=== PATIENT | female | born 1945 | race Caucasian/White ===

== ENCOUNTER 2019-01-16 11:08 | Day surgery (SDC) | payer MEDICARE ==
[2019-01-10 09:18] VITALS: BMI 30.5
--- NOTE | 2019-01-14 20:06 | HP ---
HISTORY AND PHYSICAL REASON FOR ADMISSION: Surgery 01/16/2019 HISTORY OF PRESENT ILLNESS: Debbie Gerardo is a 74-year-old patient seen with symptomatic right carpal tunnel syndrome. We discussed treatment options. She elected to proceed with decompression right median nerve. Consent was obtained. PAST MEDICAL HISTORY: Hypothyroidism, insulin-dependent diabetes, hyperlipidemia. PAST SURGICAL HISTORY: Noncontributory. MEDICATIONS: Simvastatin, metformin, Lantus insulin, Synthroid. ALLERGIES: ERYTHROMYCIN. VARIOUS EYE DROPS. SOCIAL HISTORY: She denies current tobacco use. PHYSICAL EXAMINATION: Physical evaluation of the right hand, positive carpal compression, positive carpal Tinel's causing numbness and tingling throughout the median nerve distribution. She also has tenderness along the right ring finger with triggering and clicking and catching there. She has a positive carpal compression, carpal Tinel's exacerbating numbness and tingling in the median nerve distribution. She has good perfusion and a good radial pulse is present. An EMG revealed carpal tunnel syndrome. IMPRESSION: 1. Right carpal tunnel syndrome. 2. Right ring finger trigger finger. 3. Insulin-dependent diabetes. 4. Hypothyroidism. PLAN: 1. Decompression right median nerve. 2. Release A1 kerri, right ring finger. 3. Surgery scheduled for 01/16/2019. MMODL / IJN: [id number] /
[~2019-01-16 11:08] MED LIST: HYDROmorphone 0.5 MG/0.5 ML SYRINGE IVP PRN; LACTATED RINGERS 1,000 ML IV SCH; LIDOCAINE 1% 20 ML VIAL (10MG/ML) FOR IV START INTRADERMA PRN; ONDANSETRON 4 MG/2 ML VIAL IVP ONE
[2019-01-16 11:26] VITALS: RESP 16; TEMP 97.2
[2019-01-16 11:37] LABS: Glucose,Whole Blood 117 mg/dL (75-99)
[2019-01-16] MEDS ORDERED: DEXAMETHASONE SOD PHOSPHATE 4 MG/ML 1 ML VIAL IV ONE (11:37)
[2019-01-16] MEDS ORDERED: PROPOFOL 10 MG/ML 20 ML VIAL IV ONE (12:18)
[2019-01-16] MEDS ORDERED: LIDOCAINE 1% INJ 10MG/ML (20 ML MDV) ONE (12:18)
[2019-01-16] MEDS ORDERED: MIDAZOLAM 2 MG/2 ML VIAL ONE (12:18)
[2019-01-16] MEDS ORDERED: fentaNYL (PF) 50 MCG/ML 2 ML AMP ONE (12:18)
[2019-01-16] MEDS ORDERED: BUPIVACAINE (PF) 0.25% 30 ML VIAL SQ ONE (12:34)
[2019-01-16 12:55] VITALS: PULSE 67
--- NOTE | 2019-01-16 13:10 | P.OP ---
Date of Procedure: 01/16/19 Preoperative Diagnosis: 1. Right carpal tunnel syndrome 2 Right ring finger trigger finger Postoperative Diagnosis: Same Procedure(s) Performed: 1. Decompression right median nerve 2. Release A1 kerri right ring finger Anesthesia: MAC, local Surgeon: Soto Flores Estimated Blood Loss (ml): 1 Pathology: none sent Condition: stable Disposition: PACU Indications for Procedure: 74-year-old patient seen with symptomatic right carpal tunnel syndrome as well as a symptomatic right ring finger trigger finger. After I had discussed treatment options with her, she elected to proceed with decompression right median nerve and release A1 kerri right ring finger. Consent was obtained. Operative Findings: see description of procedure Description of Procedure: Patient was taken to the operative suite. The patient underwent IV sedation by the department of anesthesia. The patient received preoperative IV antibiotics. A well-padded tourniquet placed proximal right upper extremity. Right upper extremity was prepped and draped in the normal sterile orthopedic fashion. The proposed incision sites were infiltrated with quarter percent plain Marcaine totaling 15 mL between both areas. The extremity was elevated and tourniquet was insufflated to 250. An incision was now made beginning at the distal volar wrist crease extending distally proximal knee 3 cm in line with the fourth metacarpal sharply through skin. Dissection taken down to the transverse carpal ligament. I now incised transcarpal ligament making sure was completely released proximally and distally. There was complete release of transverse carpal ligament. There was good decompression of the nerve. There was good hemostasis. I now repaired the incision utilizing nylon suture. I now turned my attention to the area A1 kerri right ring finger. An incision was made measuring approximately 2 cm sharply through skin. I dissected down to the A1 kerri. I identified the A1 kerri. I now incised the A1 kerri and released it completely. We noted complete release of A1 kerri. There was good excursion of the tendon with no impingement. There was good hemostasis. I repaired the incision with nylon suture. I applied sterile dressings to both areas. A sterile web roll was applied followed by Coban dressing. The tourniquet was released with immediate capillary fill all digits noted. The patient was awakened, transferred to a bed and recovery stable condition.
[2019-01-16 13:24] LABS: Glucose,Whole Blood 129 mg/dL (75-99)
[2019-01-16 13:29] VITALS: BP 122/68
== END 2019-01-16 13:52 | disposition home or self-care (01) ==
LOC: OR 11:08
PROVIDERS: ATTEND Orthopaedic Surgery
DX: M65.341 Trigger finger, right ring finger (principal); G56.01 Carpal tunnel syndrome, right upper limb; E03.9 Hypothyroidism, unspecified; E11.9 Type 2 diabetes mellitus without complications; E78.5 Hyperlipidemia, unspecified; Z79.890 Hormone replacement therapy; Z79.4 Long term (current) use of insulin; Z79.899 Other long term (current) drug therapy; Z88.1 Allergy status to other antibiotic agents; Z88.8 Allergy status to other drugs, medicaments and biological substances; Z87.891 Personal history of nicotine dependence; K21.9 Gastro-esophageal reflux disease without esophagitis
CPT/HCPCS: 64721; 26055; J2250; J1100; J0690; J2405; J2001; J3010; J2704

== ENCOUNTER → 2019-12-15 | Outpatient (CLI) | payer MEDICARE ==
--- NOTE | 2019-12-17 08:46 | MR ---
EXAMINATION TYPE: MR knee RT wo con DATE OF EXAM: 12/15/2019 COMPARISON: Right knee radiograph 11/18/2019. HISTORY: Right knee pain TECHNIQUE: Multiplanar, multisequence imaging of the right knee is performed without IV contrast. FINDINGS: MEDIAL MENISCUS: There is increased signal and horizontal tear of the posterior horn and body, with e xtension to the tibial articular surface. LATERAL MENISCUS: Anterior and posterior horns are intact without tear. CRUCIATE LIGAMENTS: The anterior and posterior cruciate ligaments are intact. There is mucoid degener ation of the anterior cruciate ligament. COLLATERAL LIGAMENTS: The medial collateral ligament and lateral collateral ligament complex are inta ct and unremarkable. EXTENSOR MECHANISM: Visualized quadriceps and patellar tendons are intact. EFFUSION: No significant suprapatellar joint effusion. POPLITEAL CYST: Small popliteal cyst measuring up to 9 mm. TRICOMPARTMENT SPACES: There is medial compartment joint space narrowing. CARTILAGE: There is thinning of the medial compartment cartilage with complete cartilage loss of the of the anterolateral tibial plateau and mid femoral condyle. Patellofemoral and lateral compartment c artilage maintained. BONE MARROW SIGNAL: There is focal tibial bone marrow edema and femoral subchondral cysts of the late ral aspect of the mid medial femorotibial joint. OTHER: No additional significant abnormality is appreciated. IMPRESSION: 1. Horizontal tear of the medial meniscus posterior horn and body, extending to the tibial articular surface. 2. Medial compartment chondrosis.
== END | disposition home or self-care (01) ==
LOC: RADMRIMAIN 07:09
PROVIDERS: ATTEND Orthopaedic Surgery
DX: S83.241A Other tear of medial meniscus, current injury, right knee, initial encounter (principal); M94.261 Chondromalacia, right knee

== ENCOUNTER → 2019-12-19 | Outpatient (CLI) | payer MEDICARE ==
[2019-12-19 12:38] LABS: Basophils % (A) 1 %; Eosinophils # (A) 0.2 k/uL (0-0.7); Eosinophils % (A) 4 %; HCT 43.7 % (34.0-46.0); HGB 13.7 gm/dL (11.4-16.0); Lymphocytes # (A) 1.6 k/uL (1.0-4.8); Lymphocytes % (A) 24 %; MCH 28.4 pg (25.0-35.0); MCHC 31.3 g/dL (31.0-37.0); MCV 90.9 fL (80.0-100.0); Mean Platelet Volume 8.1; Monocytes # (A) 0.4 k/uL (0-1.0); Monocytes % (A) 6 %; Neutrophils # (A) 4.3 k/uL (1.3-7.7); Neutrophils % (A) 64 %; Platelet Count 205 k/uL (150-450); RBC 4.81 m/uL (3.80-5.40); RDW 13.6 % (11.5-15.5); WBC 6.7 k/uL (3.8-10.6)
[2019-12-19 12:49] LABS: Potassium 4.5 mmol/L (3.5-5.1)
== END | disposition home or self-care (01) ==
LOC: LABPAT 11:12
PROVIDERS: ATTEND Orthopaedic Surgery
DX: Z01.818 Encounter for other preprocedural examination (principal); M23.91 Unspecified internal derangement of right knee
CPT/HCPCS: 36415; 80051; 85025; 93005

== ENCOUNTER 2019-12-31 10:24 | Day surgery (SDC) | payer MEDICARE ==
[2019-12-24 14:40] VITALS: BMI 30.9
--- NOTE | 2019-12-30 12:48 | HP ---
HISTORY AND PHYSICAL DATE OF SURGERY: 12/31/2019 Debbie Gerardo is a 74-year-old patient seen with progressive right knee pain. We discussed options for treatment. She elected to proceed with arthroscopy. Consent was obtained. PAST MEDICAL HISTORY: Hypertension, hyperlipidemia, insulin-dependent diabetes, hypothyroidism. PAST SURGICAL HISTORY: Knee arthroscopy. MEDICATIONS: Aspirin, simvastatin, metformin, Lantus insulin, Synthroid. ALLERGIES: ERYTHROMYCIN EYEDROPS and VARIOUS OTHER EYEDROPS. SOCIAL HISTORY: She denies tobacco use. PHYSICAL EVALUATION OF THE RIGHT: Right knee range of motion is 0-130. There is a mild effusion present. Tenderness medial joint line. Positive medial Jamie's. Ligaments stable. Hip rotation without pain. Distal neurovascular exam intact. RADIOGRAPHS: Radiographs of the right knee revealed osteoarthritic changes. A right knee MRI revealed medial meniscal tear as well as osteoarthritic changes. IMPRESSION: 1. Internal derangement, right knee with medial meniscal tear. 2. Right knee osteoarthritis. 3. Hyperlipidemia. 4. Insulin-dependent diabetes. 5. Hypothyroidism. PLAN: Right knee arthroscopy with partial meniscectomy, partial synovectomy and debridement. MMODL / IJN: [id number] /
[~2019-12-31 10:24] MED LIST changes: +DEXAMETHASONE SOD PHOSPHATE 10 MG/ML 1 ML VIAL IV ONE; -HYDROmorphone 0.5 MG/0.5 ML SYRINGE IVP PRN; -LACTATED RINGERS 1,000 ML IV SCH; -LIDOCAINE 1% 20 ML VIAL (10MG/ML) FOR IV START INTRADERMA PRN; +MIDAZOLAM 2 MG/2 ML VIAL IV PRN
[2019-12-31] MEDS ORDERED: ONDANSETRON 4 MG/2 ML VIAL ONE ×2 (10:41→14:07)
[2019-12-31] MEDS: LACTATED RINGERS 1,000 ML IV SCH ×2 (10:49→14:21)
[2019-12-31] MEDS ORDERED: LIDOCAINE 1% (10MG/ML) FOR IV START INTRADERMA ONE (10:50)
[2019-12-31 10:58] LABS: Glucose,Whole Blood 135 mg/dL (75-99)
[2019-12-31] MEDS ORDERED: fentaNYL (PF) 50 MCG/ML 2 ML AMP ONE (12:05)
[2019-12-31] MEDS ORDERED: LIDOCAINE 1% INJ 10MG/ML (20 ML MDV) ONE (12:05)
[2019-12-31] MEDS ORDERED: PROPOFOL 10 MG/ML 20 ML VIAL IV ONE (12:05)
[2019-12-31] MEDS ORDERED: BUPIVACAINE (PF) 0.25% 30 ML VIAL SQ ONE ×2 (12:13→12:38)
--- NOTE | 2019-12-31 12:52 | P.OP ---
Date of Procedure: 12/31/19 Preoperative Diagnosis: Internal derangement right knee Postoperative Diagnosis: 1. Tear medial meniscus right knee 2. Grade 3/4 chondromalacia medial femoral condyle right knee 3. Reactive synovitis medial, lateral and suprapatellar compartments right knee Procedure(s) Performed: 1. Arthroscopic partial medial meniscectomy right knee 2. Arthroscopic chondroplasty medial femoral condyle right knee 3. Arthroscopic partial synovectomy medial, lateral and suprapatellar compartments right knee Anesthesia: WILLYA, local Surgeon: Soto Flores Estimated Blood Loss (ml): 8 Pathology: none sent Condition: stable Disposition: PACU Indications for Procedure: 74-year-old patient seen with progressive right knee pain. After treatment options were discussed, she elected to proceed with arthroscopy. Operative Findings: See description of procedure Description of Procedure: Patient was taken to the operative suite. Patient underwent a general anesthetic by the department of anesthesia. Patient was given preoperative antibiotics. The right lower extremity was placed in a well-padded arthroscopic leg gonzalez. The right leg was prepped and draped in the normal sterile orthopedic fashion. A lateral parapatellar and suprapatellar incision was made. Trochars were inserted. Arthroscopy was initiated. Suprapatellar pouch revealed diffuse thick reactive synovitis. The patellofemoral joint appeared to articulate congruently. There with grade 3 chondromalacia changes of patellofemoral joint with no osteochondral tears present. The scope was guided into the medial gutter. No loose bodies or plica were identified. The scope was then guided into the medial compartment. A medial parapatellar incision was made. Trocar inserted followed by probe. There was a complex tear posterior horn medial meniscus extending into the midbody. There were grade 3/4 chondromalacia changes of the medial femoral condyle with some diffuse osteochondral flap tears present. There were grade 3/4 chondral malacia changes of the tibial plateau with one small area of exposed bone. There was thick reactive synovitis anteriorly. I performed a partial medial meniscectomy. I performed a chondroplasty of the medial femoral condyle. I performed a partial synovectomy. The residual meniscus was stable. The residual osteochondral surface was stable. There was good decompression of the synovitis. Scope and probe were then guided into the intercondylar notch. Cruciates were identified, probed and found to be stable. The scope and probe were then guided into lateral compartment. The lateral meniscus was found to be stable. There were grade 1 chondromalacia changes of lateral compartment with no osteochondral tears present. There was thick reactive synovitis anteriorly. I introduced a motorized shaver and performed a partial synovectomy decompressing reactive synovitis. The shaver was removed. There was good decompression of the synovitis. The scope was in guided back into the suprapatellar compartment. I introduced a motorized shaver into the suprapatellar compartment. I debrided some piecemeal fragments of meniscus I encountered. I performed a partial synovectomy. The shaver was removed. There was good decompression of the synovitis. I took one more look on the entire knee, no residual debris. Instruments were now removed from the joint. The joint was infiltrated with .25% Marcaine. Steri-Strips were applied to the portal sites. Sterile dressings were applied. The patient was placed into a AUGUSTIN hose. No tourniquet was utilized. The patient was awakened, transferred to a bed and taken to recovery stable satisfactory condition.
[2019-12-31] MEDS: HYDROmorphone 0.5 MG/0.5 ML SYRINGE IVP PRN ×3 (12:56→13:12)
[2019-12-31 13:01] VITALS: TEMP 96.8
[2019-12-31 13:29] LABS: Glucose,Whole Blood 125 mg/dL (75-99)
[2019-12-31] MEDS ORDERED: HYDROcodone/APAP 5-325MG 1 EACH TAB ONE (14:02)
[2019-12-31] MEDS ORDERED: HYDROcodone/APAP 5-325MG 1 EACH TAB PO ONE (14:03)
[2019-12-31] MEDS ORDERED: ONDANSETRON 4 MG/2 ML VIAL IVP ONE (14:10)
[2019-12-31 14:20] VITALS: PULSE 69
[2019-12-31 14:36] VITALS: BP 141/68; RESP 16
[2019-12-31] MEDS ORDERED: diphenhydrAMINE 50 MG/ML 1 ML VIAL ONE (14:39)
[2019-12-31] MEDS ORDERED: diphenhydrAMINE 50 MG/ML 1 ML VIAL IVP ONE (14:43)
== END 2019-12-31 16:10 | disposition home or self-care (01) ==
LOC: OR 10:24
PROVIDERS: ATTEND Orthopaedic Surgery
DX: S83.241A Other tear of medial meniscus, current injury, right knee, initial encounter (principal); X58.XXXA Exposure to other specified factors, initial encounter; M94.261 Chondromalacia, right knee; M17.11 Unilateral primary osteoarthritis, right knee; M65.861 Other synovitis and tenosynovitis, right lower leg; I10 Essential (primary) hypertension; E78.5 Hyperlipidemia, unspecified; E11.9 Type 2 diabetes mellitus without complications; Z87.891 Personal history of nicotine dependence; E03.9 Hypothyroidism, unspecified; Z98.890 Other specified postprocedural states; Z79.82 Long term (current) use of aspirin; Z79.890 Hormone replacement therapy; Z79.4 Long term (current) use of insulin; Z79.891 Long term (current) use of opiate analgesic; Z79.899 Other long term (current) drug therapy; Z88.1 Allergy status to other antibiotic agents; Z88.8 Allergy status to other drugs, medicaments and biological substances
CPT/HCPCS: 29881; 29876; J1200; J1100; J0690; J2405; J2001; J3010; J2704; J1170

== ENCOUNTER → 2020-10-15 | Outpatient (CLI) | payer MEDICARE | END | disposition home or self-care (01) | LOC: LABPAT 13:35 | PROVIDERS: ATTEND Orthopaedic Surgery | DX: Z01.812 Encounter for preprocedural laboratory examination (principal) | CPT/HCPCS: 87070 ==

== ENCOUNTER 2020-11-08 07:52 | Observation (INO) | payer MEDICARE ==
[2020-11-02 13:30] VITALS: BMI 30.9
--- NOTE | 2020-11-07 11:52 | HP ---
HISTORY AND PHYSICAL DATE OF SURGERY: 11/08/2020 Debbie Gerardo is a 75-year-old patient seen with symptomatic right knee osteoarthritis. After treatment options were discussed with her, she elected to proceed with right total knee arthroplasty. Consent was obtained. Medical clearance was provided by Dr. Sheffield. PAST MEDICAL HISTORY: Hyperlipidemia, insulin-dependent diabetes, hypothyroidism. PAST SURGICAL HISTORY: Knee arthroscopy. DAILY MEDICATIONS: Simvastatin, metformin, Lantus insulin, Synthroid. ALLERGIES: ERYTHROMYCIN EYEDROPS, NEOMYCIN EYE DROPS. SOCIAL HISTORY: She denies tobacco use. PHYSICAL EVALUATION OF THE RIGHT KNEE: Range of motion is -2/3-120. Mild effusion. Crepitus medial patellofemoral compartments on range of motion. Pain with patellofemoral compression. Ligaments stable. Hip rotation without pain. Distal neurovascular exam is intact. RADIOGRAPHS: Radiographs of the right knee reveal severe osteoarthritic changes. IMPRESSION: 1. Right knee osteoarthritis. 2. Insulin-dependent diabetes. 3. Hyperlipidemia. 4. Hypothyroidism. PLAN: Right total knee arthroplasty. MMODL / IJN: [id number] /
[~2020-11-08 07:52] MED LIST changes: +ACETAMINOPHEN TAB 500 MG TAB PO PRN; -DEXAMETHASONE SOD PHOSPHATE 10 MG/ML 1 ML VIAL IV ONE; +DEXAMETHASONE SOD PHOSPHATE 4 MG/ML 1 ML VIAL IV ONE; +LACTATED RINGERS 1,000 ML IV SCH; +MELOXICAM 7.5 MG TAB PO PRN; +ROPIVACAINE/EPI/CLONIDINE/KET 50 ML SYRINGE MISCELLANE PRN; +TRANEXAMIC ACID 1,000 MG in SODIUM CHLORIDE 0.9% 100 ML IVPB PRN
[2020-11-08] MEDS ORDERED: LIDOCAINE 1% (10MG/ML) FOR IV START INTRADERMA ONE (08:35)
[2020-11-08 08:41] LABS: Glucose,Whole Blood 102 mg/dL (75-99)
[2020-11-08] MEDS ORDERED: MIDAZOLAM 2 MG/2 ML VIAL IVP ONE (09:06)
[2020-11-08] MEDS ORDERED: TRANEXAMIC ACID 1,000 MG/10 ML VIAL ONE (09:52)
[2020-11-08] MEDS ORDERED: ROPIVACAINE 5 MG/ML 30 ML VIAL ONE (09:52)
[2020-11-08] MEDS ORDERED: MIDAZOLAM 2 MG/2 ML VIAL ONE (09:52)
[2020-11-08] MEDS ORDERED: SODIUM CHLORIDE 0.9% 100 ML BAG ONE (09:52)
[2020-11-08] MEDS ORDERED: ceFAZolin 1,000 MG in SODIUM CHLORIDE 0.9% 1,000 ML IRRIGATION ONE (10:25)
[2020-11-08] MEDS ORDERED: HYDROmorphone 0.2 MG/1 ML SYRINGE IVP PRN (11:34)
[2020-11-08] MEDS ORDERED: NALOXONE 0.4 MG/ML 1 ML VIAL IV PRN (11:34)
[2020-11-08] MEDS ORDERED: ONDANSETRON 4 MG/2 ML VIAL IVP PRN ×2 (11:34→16:14)
[2020-11-08] MEDS ORDERED: HYDROmorphone 0.5 MG/0.5 ML SYRINGE IVP PRN (11:34)
--- NOTE | 2020-11-08 11:34 | P.OP ---
Date of Procedure: 11/08/20 Preoperative Diagnosis: Right knee osteoarthritis Postoperative Diagnosis: Right knee osteoarthritis Procedure(s) Performed: Right total knee arthroplasty Implants: 1. Depuy attune size 6 right cruciate retaining cemented femur 2. Depuy attune size 6 fixed bearing cemented tibial baseplate 3. Depuy attune size 6 fixed bearing cruciate retaining 10 mm polyethylene tibial insert 4. Depuy attune 38 mm all polyethylene cemented patella Anesthesia: regional (Abductor canal catheter, I pack block), spinal Surgeon: Soto Flores Manager [employer]formatics #1: John Cardenas Estimated Blood Loss (ml): 45 Pathology: other (Bone) Condition: stable Disposition: PACU Indications for Procedure: 75-year-old patient seen with symptomatic right knee osteoarthritis. After treatment options were discussed, she elected to proceed with total knee arthroplasty. Operative Findings: see description of procedure Description of Procedure: Patient was taken to the operative suite after having an adductor canal catheter placed by the department of anesthesia along with an ipack block for postoperative pain management. Patient underwent a spinal anesthetic by the department of anesthesia. Patient was given preoperative IV intake antibiotics and TXA. A well-padded tourniquet was placed about the right lower extremity. The lower extremity was then prepped and draped in the normal sterile orthopedic fashion. The extremity was elevated, a tourniquet was insufflated to 300. A standard anterior incision was made sharply through skin. Dissection was taken down through the subcutaneous soft tissues down to the extensor mechanism. A medial arthrotomy was performed, patella was everted and knee was flexed. There was advanced osteoarthritis noted. I introduced my distal intramedullary femoral drill. I then introduced the distal femoral cutting jig. Duane HAZEL secured the cutting jig with 2 pins. I held retractors in position while Duane HAZEL performed the distal femoral resection through the guide area we now removed her distal femoral cutting guide. We now placed our 4-in-1 femoral cutting block and positioned and it was secured with 2 pins by Duane byrd I held the block in position. The distal femoral finishing was now completed. A proximal tibial cutting guide was positioned. I held the guide in the appropriate position with both hands well Duane HAZEL inserted stabilizing pins into the guide. Proximal tibial cut was made. We now placed a trial femoral component into position, along with an appropriate size tibial tray and insert. We now took the knee through range of motion and had full extension good flexion and good overall soft tissue balance noted. The patella was everted and stabilized with 2 towel clips held by Duane HAZEL while I performed a flush with patellar quad tendon utilizing a fresh sawblade. We templated the patella, appropriate drill holes were made. An appropriate trial patella was positioned, knee was taken through full range of motion with the patella tracking very nicely. The trial patella was removed. Drill holes were made through the femoral component. All trial components were removed after marking off the appropriate rotation of the tibia. Retractors were now positioned along the proximal tibia. An appropriate keel punch was made with the appropriate size tibial guide by myself on Duane HAZEL assisted by holding retractors. At this point appropriate size implants were chosen and opened. The joint was irrigated copiously with pulse lavage mechanical irrigation. The posterior capsule was infiltrated with local analgesic. The wound was irrigated with pulse lavage mechanical irrigation. We mixed antibiotic methylmethacrylate. We placed the knee into flexion. We placed multiple retractors assisted by Duane HAZEL to expose the proximal tibia. Once the methyl methacrylate was ready, the tibial component was cemented into place removing any excess methylmethacrylate form by both myself and Duane HAZEL. The femoral component was cemented into place removing the removing any excess methylmethacrylate performed by both myself and Duane HAZEL. We then inserted the appropriate size polyethylene tibial insert. We made sure that it was locked into position. We took the knee into full extension, and then back in a flexion making sure we had removed any excess methylmethacrylate. The patellar component was then cemented down and secured with clamp. Excess methylmethacrylate removed. We kept the knee in full extension, patellar clamp in position until methylmethacrylate had hardened. Once it had hardened the patellar clamp was removed. The knee was taken through full range of motion. The patella tracked nicely. There was good soft tissue balancing. The tourniquet was now released. Additional hemostasis was achieved via electrocautery. A second gram of TXA was given. The wound again was irrigated with pulse lavage mechanical irrigation. The extensor mechanism was repaired with Vicryl. We checked the repair with range of motion and it was stable. The subcutaneous soft tissues were repaired with Vicryl in layers. The skin was ap proximated with pernio/Dermabond. Sterile dressings were applied followed by loose web roll and Parish bandage. The patient was transferred to a bed, and taken to recovery in stable and satisfactory condition. Duane HAZEL assisted with this complex procedure.
[2020-11-08] MEDS ORDERED: ROPIVACAINE 0.2%-NS ON-Q PUMP 2 MG/ML EACH MISCELLANE ONE (12:05)
[2020-11-08 12:09] LABS: Glucose,Whole Blood 73 mg/dL (75-99)
--- NOTE | 2020-11-08 12:13 | XR ---
EXAMINATION TYPE: XR knee limited RT DATE OF EXAM: 11/08/2020 COMPARISON: NONE HISTORY: 75-year-old female evaluation for postoperative abnormality and alignment. TECHNIQUE: 2 views FINDINGS: Images show placement of right total ureter plasty. Both distal femoral and proximal tibial component s of the prosthesis are well seated without periprosthetic fracture. Alignment grossly anatomic. Ante rior soft tissue swelling with soft tissue air as well as intra-articular air relating to recent oper ation. IMPRESSION: Uncomplicated postoperative appearance right total knee arthroplasty.
[2020-11-08] MEDS: HYDROmorphone 0.5 MG/0.5 ML SYRINGE IVP PRN ×2 (12:27→13:40)
[2020-11-08] MEDS: LACTATED RINGERS 1,000 ML IV SCH ×2 (14:00→20:11)
[2020-11-08 14:37] LABS: Glucose,Whole Blood 170 mg/dL (75-99)
--- NOTE | 2020-11-08 16:24 | P.CONS ---
History of Present Illness - Reason for Consult Consult date: 11/08/20 Medical management Requesting physician: Soto Flores - Chief Complaint Knee surgery - History of Present Illness Consultation: This is a pleasant 75-year-old patient of Dr. Gregory. Chronic stable medical conditions include diabetes, hyperlipidemia, osteoarthritis especially in the hands, hypothyroid. Patient has undergone right total knee arthroplasty. Pain control. Has significant nausea. Sitting up in bed. A bit tired. No chest pain or shortness breath. Denies any cardiac history. Daughter the bedside. Review of systems: GEN.: None EYES: None HEENT: None NECK: None RESPIRATORY: None CARDIOVASCULAR: None GASTROINTESTINAL: [Nausea GENITOURINARY: None MUSCULOSKELETAL: Pain in the joints especially the hands LYMPHATICS: None HEMATOLOGICAL: None PSYCHIATRY: None NEUROLOGICAL: None Past medical history to include: Diabetes, hyperlipidemia, osteomyelitis, hypothyroid, Social history: Patient stopped smoking over 20 years ago. Alcohol rarely. . Family history: Reviewed, noncontributory to presentation Physical examination: VITAL SIGNS: 97.9, 72, 18, 1 20 x 33, 94% room air GENERAL: BMI 30.9, sitting on bed, bit tired. EYES: Pupils equal. Conjunctiva normal. HEENT: External appearance of nose and ears normal, oral cavity grossly normal. NECK: JVD not raised; masses not palpable. HEART: First and second heart sounds are normal; no edema. LUNGS: Respiratory rate normal; clear to auscultation. ABDOMEN: Soft, nontender, liver spleen not palpable, no masses palpable. PSYCH: Alert and oriented x3; mood and affect normal MUSCULAR skeletal: Ostomy 30 dose of the hands. Dressing over the right knee. NEUROLOGICAL: Cranial nerves grossly intact; no facial asymmetry, power and sensation grossly intact. LYMPHATICS: No lymph nodes palpable in the axilla and neck Investigations: Accu-Cheks 102, 73, 170 Assessment and plan: -Right total knee arthroplasty -Primary osteoarthritis multiple joints Pain management when necessary -Diabetes mellitus type 2 Resume-glycemic's. Follow Accu-Cheks. Hold off metformin for now. Hold Amaryl -Postop nausea, possibly side effect of anesthesia and pain medication Zofran when necessary -Hypothyroid Resume Synthroid -Insomnia, intermittent use melatonin -Obesity BMI 30.9 Weight loss measures and follow with PCP Care was discussed with the patient and daughter the bedside. Resume Lantus. Hold Amaryl and metformin for now. Follow Shahnazu-Jamie. Camelia. Thank you Dr. Florence Past Medical History Past Medical History: Diabetes Mellitus, Hyperlipidemia, Osteoarthritis (OA), Thyroid Disorder Additional Past Medical History / Comment(s): steroid injection September 2020 History of Any Multi-Drug Resistant Organisms: None Reported Past Surgical History: Joint Replacement, Tubal Ligation Additional Past Surgical History / Comment(s): Big toe left foot joint replacement. Hemorrhoidectomy. Colonoscopy.L knee arthroscopy, Right total knee (11/08/20). Past Anesthesia/Blood Transfusion Reactions: Postoperative Nausea & Vomiting (PONV) Past Psychological History: No Psychological Hx Reported Smoking Status: Former smoker Past Alcohol Use History: Rare Additional Past Alcohol Use History / Comment(s): Quit smoking >20 yrs ago. Past Drug Use History: None Reported - Past Family History Mother Family Medical History: No Reported History Medications and Allergies Home Medications Medication Instructions Recorded Confirmed Type Aspirin 81 mg PO DAILY 05/05/14 11/08/20 History Glimepiride [Amaryl] 4 mg PO BID 05/05/14 11/08/20 History Levothyroxine Sodium [Synthroid] 112 mcg PO QAM 05/05/14 11/08/20 History Simvastatin 40 mg PO DAILY 05/05/14 11/08/20 History metFORMIN HCL 1,000 mg PO BID 05/05/14 11/08/20 History Insulin Glargine [Lantus] 15 unit SQ HS 01/10/19 11/08/20 History Pioglitazone [Actos] 45 mg PO DAILY 01/10/19 11/08/20 History Multivitamins, Thera [Multivitamin 1 tab PO DAILY 12/24/19 11/08/20 History (formulary)] Allergies Allergy/AdvReac Type Severity Reaction Status Date / Time erythromycin base Allergy Swelling Verified 11/08/20 08:24 polymyxin B Allergy Swelling Verified 11/08/20 08:24 trimethoprim Allergy Swelling Verified 11/08/20 08:24 Physical Exam Vitals: Vital Signs Temp Pulse Pulse Pulse Resp BP Pulse Ox 11/08/20 14:30 97.9 F 72 18 120/73 94 L 11/08/20 13:55 72 16 120/66 98 11/08/20 13:40 66 16 128/68 97 11/08/20 13:25 67 16 131/67 98 11/08/20 13:10 65 16 128/66 96 11/08/20 12:55 69 16 138/67 97 11/08/20 12:40 64 16 130/64 96 11/08/20 12:25 64 16 137/58 96 11/08/20 12:09 64 16 127/58 96 11/08/20 11:54 97.3 F L 64 18 126/67 97 11/08/20 09:24 66 17 153/65 97 11/08/20 08:35 97.4 F L 74 18 168/77 97 Intake and Output 11/08/20 11/08/20 11/08/20 06:59 14:59 22:59 Intake Total 1101 Output Total 45 Balance 1056 Intake: IV 1101 Output: Estimated Blood Loss 45 Other: Weight 81.647 kg Results Labs: Abnormal Lab Results - Last 24 Hours (Table) 11/08/20 11/08/20 11/08/20 Range/Units 08:37 12:07 14:35 POC Glucose (mg/dL) 102 H 73 L 170 H (75-99) mg/dL
[2020-11-08 16:38] LABS: Glucose,Whole Blood 255 mg/dL (75-99)
[2020-11-08] MEDS: INSULIN ASPART (NovoLOG) 100 UNIT/ML VIAL SQ SCH ×2 (18:09→21:39)
[2020-11-08] MEDS: ENOXAPARIN 30 MG/0.3 ML SYRINGE SQ SCH (20:09)
[2020-11-08] MEDS: SENNOSIDES-DOCUSATE SODIUM 1 EACH TAB PO SCH (20:09)
[2020-11-08] MEDS ORDERED: metFORMIN 500 MG TAB PO SCH (21:00)
[2020-11-08 21:31] LABS: Glucose,Whole Blood 304 mg/dL (75-99)
[2020-11-08] MEDS: INSULIN DETEMIR (LEVEMIR) 100 UNIT/ML SYR SQ SCH (21:39)
[2020-11-09] MEDS: LEVOTHYROXINE 112 MCG TAB PO SCH (05:00)
[2020-11-09 07:04] LABS: Glucose,Whole Blood 98 mg/dL (75-99)
[2020-11-09] MEDS: INSULIN ASPART (NovoLOG) 100 UNIT/ML VIAL SQ SCH ×4 (07:17→22:15)
[2020-11-09] MEDS: PIOGLITAZONE 45 MG TAB PO SCH (07:29)
[2020-11-09] MEDS: MELOXICAM 7.5 MG TAB PO SCH (07:29)
[2020-11-09] MEDS: ENOXAPARIN 30 MG/0.3 ML SYRINGE SQ SCH ×2 (07:30→20:29)
[2020-11-09] MEDS: ATORVASTATIN 20 MG TAB PO SCH (07:31)
[2020-11-09] MEDS: HYDROcodone/APAP 5-325MG 1 EACH TAB PO PRN ×3 (07:31→22:13)
--- NOTE | 2020-11-09 08:26 | P.ANPRN ---
Procedure Note - Anesthesia - Nerve Block Performed Right Adductor Canal Infusion Time Out Performed: Yes Date of Procedure: 11/08/20 Procedure Start Time: : Procedure Stop Time: :07 Location of Patient: PreOp Indication: Acute Post-Operative Pain, Requested by Surgeon Sedation Type: Sedate with meaningful contact maintained Preparation: Sterile Prep, Sterile Dressing Position: Supine Catheter: Indwelling Needle Types: Pajunk Needle Gauge: 21 Ultrasound used to visualize needle placement: Yes Ultrasound used to observe medication spread: Yes Blood Aspirated: No Pain Paresthesia on Injection Noted: No Resistance on Injection: Normal Image Stored and Saved: Yes Events: Uneventful and Well Tolerated (ropi .5% 20cc)
--- NOTE | 2020-11-09 08:28 | P.ANPRN ---
Procedure Note - Anesthesia - Nerve Block Performed Right [place] Single Time Out Performed: Yes Date of Procedure: 11/08/20 Procedure Start Time: Procedure Stop Time: Location of Patient: PreOp Indication: Acute Post-Operative Pain, Requested by Surgeon Sedation Type: Sedate with meaningful contact maintained Preparation: Sterile Prep Position: Supine Needle Types: Pajunk Needle Gauge: 21 Ultrasound used to visualize needle placement: Yes Ultrasound used to observe medication spread: Yes Blood Aspirated: No Pain Paresthesia on Injection Noted: No Resistance on Injection: Normal Image Stored and Saved: Yes Events: Uneventful and Well Tolerated (ropi .5% 20cc plus dexamethasone 4mg)
--- NOTE | 2020-11-09 09:00 | P.PN ---
Progress Note - Text 11/09/20 650am 75 yr old female s/p r tkr by Dr Flores, pt has on -q pump for post op pain control. pt seen and evaluated , pt has a vas of 0 for the surgical site. pt was complaining of thigh pain secondary to to tourniquet . solution running at 8cc per hr and desg site looked clean,dry and intact.
[2020-11-09 09:11] LABS: Basophils # (A) 0.01 X 10*3/uL (0.00-0.10); Basophils % (A) 0.1 %; Eosinophils # (A) 0.01 X 10*3/uL (0.04-0.35); Eosinophils % (A) 0.1 %; HCT 38.1 % (37.2-46.3); Lymphocytes # (A) 1.28 X 10*3/uL (0.90-5.00); Lymphocytes % (A) 11.3 %; MCH 28.8 pg (27.0-32.0); MCHC 31.5 g/dL (32.0-37.0); MCV 91.6 fL (80.0-97.0); Mean Platelet Volume 11.1 fL (9.5-12.2); Monocytes # (A) 1.16 X 10*3/uL (0.20-1.00); Monocytes % (A) 10.2 %; Neutrophils # (A) 8.83 X 10*3/uL (1.80-7.70); Platelet Count 198 X 10*3/uL (140-440); RBC 4.16 X 10*6/uL (4.10-5.20); RDW 14.6 % (11.5-14.5); WBC 11.32 X 10*3/uL (4.50-10.00)
--- NOTE | 2020-11-09 10:53 | P.PN ---
Subjective Progress Note Date: 11/09/20 Principal diagnosis: Status post right total knee arthroplasty Patient was examined today bedside, she is resting in a hospital chair. She has a bit with therapy, she was having difficulty, dorsiflexion of the right foot. Therapy is recommending 1 additional night's stay for observation. She is noting some anterior thigh pain in the region where the tourniquet was placed. She denies any headaches, lightheadedness, chest pain or shortness of breath. Objective - Vital Signs Vital signs: Vital Signs Temp 98.0 F 11/09/20 08:00 Pulse 74 11/09/20 08:00 Resp 19 11/09/20 08:00 BP 109/68 11/09/20 08:00 Pulse Ox 96 11/09/20 08:00 Intake & Output 11/08/20 11/09/20 11/09/20 18:59 06:59 18:59 Intake Total 1101 480 Output Total 45 Balance 1056 480 Weight 81.647 kg Intake: IV 1101 Intake, IV Titration 480 Amount Lactated Ringers 1,000 ml 480 @ 80 mls/hr IV .[id number] [facility] Rx#:[id number] Output: Estimated Blood Loss 45 Other: # Voids 1 2 - Exam Right lower extremity: Incision is clean, dry, and intact. The foam dressings is in good condition. There is minimal soft tissue swelling and ecchymosis surrounding the medial and lateral aspects of the incision. Calf is soft, no tenderness with palpation. Plantar flexion, FHL are intact. Difficulty with dorsiflexion of the ankle and EHL. Sensory exam to light touch throughout the extremity is intact, dorsal pedis pulses 2+. - Labs CBC & Chem 7: 11/09/20 05:44 Labs: Abnormal Lab Results - Last 24 Hours (Table) 11/08/20 11/08/20 11/08/20 Range/Units 12:07 14:35 16:37 WBC (4.50-10.00) X 10*3/uL MCHC (32.0-37.0) g/dL RDW (11.5-14.5) % Neutrophils # (1.80-7.70) X 10*3/uL Monocytes # (0.20-1.00) X 10*3/uL Eosinophils # (0.04-0.35) X 10*3/uL POC Glucose (mg/dL) 73 L 170 H 255 H (75-99) mg/dL 11/08/20 11/09/20 Range/Units 21:30 05:44 WBC 11.32 H (4.50-10.00) X 10*3/uL MCHC 31.5 L (32.0-37.0) g/dL RDW 14.6 H (11.5-14.5) % Neutrophils # 8.83 H (1.80-7.70) X 10*3/uL Monocytes # 1.16 H (0.20-1.00) X 10*3/uL Eosinophils # 0.01 L (0.04-0.35) X 10*3/uL POC Glucose (mg/dL) 304 H (75-99) mg/dL Assessment and Plan Assessment: Status post right total knee arthroplasty Right-sided foot drop Plan: Pain control, continue use of oral medication as needed DVT prophylaxis, continue with current medications Wound care instructions were discussed Icing and elevating techniques discussed Encourage incentive spirometer Medical recommendations We'll continue to follow symptoms and foot drop on the right side Discharge planning: Patient will be discharged home likely 11/10/2020 Time with Patient: Less than 30
[2020-11-09 11:30] LABS: Glucose,Whole Blood 244 mg/dL (75-99)
[2020-11-09] MEDS: metFORMIN 500 MG TAB PO SCH ×2 (12:01→17:39)
[2020-11-09] MEDS: MULTIVITAMINS, THERA 1 EACH TAB PO SCH (12:01)
[2020-11-09] MEDS: GLIMEPIRIDE 4 MG TAB PO SCH ×2 (12:16→20:29)
[2020-11-09] MEDS: LACTATED RINGERS 1,000 ML IV SCH (12:54)
[2020-11-09] MEDS ORDERED: SENNOSIDES 8.6 MG TAB PO STA (16:24)
--- NOTE | 2020-11-09 16:26 | P.PN ---
Progress Note - Text Progress Note Date: 11/09/20 - Chief Complaint Knee surgery Consultation: This is a pleasant 75-year-old patient of Dr. Gregory. Chronic stable medical conditions include diabetes, hyperlipidemia, osteoarthritis especially in the hands, hypothyroid. Patient has undergone right total knee arthroplasty. Today: Has been up in a chair. Did work with therapy. Some pain present. Did tolerate her breakfast. Postop nausea completely resolved. Review of systems: Was done for constitutional, cardiovascular, GI, pulmonary. relevant finding as above Active Medications Hydrocodone Bitart/Acetaminophen (Hydrocodone/Apap 5-325mg 1 Each Tab) 1 each PO Q6HR PRN PRN Reason: Pain Scale 1 to 5 Stop: 12/08/20 11:35 Last Admin: 11/09/20 07:31 Dose: 1 each Documented by: Hydrocodone Bitart/Acetaminophen (Hydrocodone/Apap 5-325mg 1 Each Tab) 2 each PO Q6HR PRN PRN Reason: Pain Scale 6 to 10 Stop: 12/08/20 11:35 Last Admin: 11/09/20 12:15 Dose: 2 each Documented by: Atorvastatin Calcium (Atorvastatin 20 Mg Tab) 20 mg PO DAILY [facility] Last Admin: 11/09/20 07:31 Dose: 20 mg Documented by: Enoxaparin Sodium (Enoxaparin 30 Mg/0.3 Ml Syringe) 30 mg SQ Q12HR [facility] Stop: 12/08/20 21:01 Last Admin: 11/09/20 07:30 Dose: 30 mg Documented by: Glimepiride (Glimepiride 4 Mg Tab) 4 mg PO BID [facility] Last Admin: 11/09/20 12:16 Dose: 4 mg Documented by: Hydromorphone HCl (Hydromorphone 0.5 Mg/0.5 Ml Syringe) 0.125 mg IVP Q3HR PRN PRN Reason: Pain Scale 1 to 3 Stop: 12/08/20 11:35 Hydromorphone HCl (Hydromorphone 0.5 Mg/0.5 Ml Syringe) 0.5 mg IVP Q3HR PRN PRN Reason: Pain Scale 7 to 10 Stop: 12/08/20 11:35 Hydromorphone HCl (Hydromorphone 0.2 Mg/1 Ml Syringe) 0.2 mg IVP Q3HR PRN PRN Reason: Pain Scale 4 to 6 Stop: 12/08/20 11:35 Lactated Ringer's (Lactated Ringers) 1,000 mls @ 80 mls/hr IV .[id number] [facility] Stop: 12/08/20 11:46 Last Admin: 11/09/20 12:54 Dose: Not Given Documented by: Insulin Aspart (Insulin Aspart (Novolog) 100 Unit/Ml Vial) 0 unit SQ [facility]; Protocol Last Admin: 11/09/20 12:01 Dose: 3 unit Documented by: Insulin Detemir (Insulin Detemir (Levemir) 100 Unit/Ml Syr) 15 unit SQ [facility] Last Admin: 11/08/20 21:39 Dose: 15 unit Documented by: Levothyroxine Sodium (Levothyroxine 112 Mcg Tab) 112 mcg PO QAM@0630 [facility] Last Admin: 11/09/20 05:00 Dose: 112 mcg Documented by: Meloxicam (Meloxicam 7.5 Mg Tab) 7.5 mg PO DAILY [facility] Stop: 12/09/20 09:01 Last Admin: 11/09/20 07:29 Dose: 7.5 mg Documented by: Metformin HCl (Metformin 500 Mg Tab) 500 mg PO BID-W/MEALS [facility] Last Admin: 11/09/20 12:01 Dose: 500 mg Documented by: Multivitamins (Multivitamins, Thera 1 Each Tab) 1 each PO DAILY@1200 [facility] Last Admin: 11/09/20 12:01 Dose: 1 each Documented by: Naloxone HCl (Naloxone 0.4 Mg/Ml 1 Ml Vial) 0.2 mg IV Q2M PRN PRN Reason: Opioid Reversal Stop: 12/08/20 11:35 Ondansetron HCl (Ondansetron 4 Mg/2 Ml Vial) 4 mg IVP Q6HR PRN PRN Reason: Nausea And Vomiting Stop: 12/08/20 11:35 Pioglitazone HCl (Pioglitazone 45 Mg Tab) 45 mg PO DAILY [facility] Last Admin: 11/09/20 07:29 Dose: 45 mg Documented by: Senna/Docusate Sodium (Sennosides-Docusate Sodium 1 Each Tab) 2 each PO HS [facility] Stop: 12/08/20 21:01 Last Admin: 11/08/20 20:09 Dose: 2 each Documented by: Past medical history to include: Diabetes, hyperlipidemia, osteomyelitis, hypothyroid, Social history: Patient stopped smoking over 20 years ago. Alcohol rarely. . Family history: Reviewed, noncontributory to presentation Physical examination: VITAL SIGNS: 97.9, 82, 18, 1 20 x 62, 95% room air GENERAL: Reclining in bed, comfortable EYES: Pupils equal. Conjunctiva normal. NECK: JVD not raised; masses not palpable. HEART: First and second heart sounds are normal; no edema. LUNGS: Respiratory rate normal; clear to auscultation. ABDOMEN: Soft, nontender, liver spleen not palpable, no masses palpable. PSYCH: Alert and oriented x3; mood and affect normal MUSCULAR skeletal: Ostomy 30 dose of the hands. Dressing over the right knee. Investigations: WBC 11.2 hemoglobin 12. Accu-Cheks 98, 244 Accu-Cheks 102, 73, 170 Assessment and plan: -Right total knee arthroplasty Lovenox for DVT prophylaxis -Primary osteoarthritis multiple joints Pain management when necessary -Diabetes mellitus type 2, uncontrolled with hyperglycemia [oral hypoglycemics were held because of nausea yesterday evening.] Continue Lantus Follow Accu-Cheks. Resume metformin and Amaryl -Postop nausea, possibly side effect of anesthesia and pain medication-corrected Zofran when necessary -Hypothyroid Resume Synthroid -Insomnia, intermittent use melatonin -Obesity BMI 30.9 Weight loss measures and follow with PCP Oral hypoglycemics and resume this afternoon. Other medications to continue. Discussed with the patient. Thank you Dr. Florence
[2020-11-09 16:32] LABS: Glucose,Whole Blood 319 mg/dL (75-99)
[2020-11-09] MEDS: HYDROmorphone 0.5 MG/0.5 ML SYRINGE IVP PRN ×2 (16:35→20:29)
[2020-11-09] MEDS ORDERED: INSULIN ASPART (NovoLOG) 100 UNIT/ML VIAL SQ ONE (17:02)
[2020-11-09 20:24] LABS: Glucose,Whole Blood 231 mg/dL (75-99)
[2020-11-09] MEDS: SENNOSIDES-DOCUSATE SODIUM 1 EACH TAB PO SCH (20:28)
[2020-11-09] MEDS: INSULIN DETEMIR (LEVEMIR) 100 UNIT/ML SYR SQ SCH (22:14)
[2020-11-10] MEDS: LACTATED RINGERS 1,000 ML IV SCH (02:16)
[2020-11-10] MEDS: LEVOTHYROXINE 112 MCG TAB PO SCH (06:35)
[2020-11-10] MEDS: HYDROcodone/APAP 5-325MG 1 EACH TAB PO PRN (06:35)
[2020-11-10 06:44] LABS: Glucose,Whole Blood 126 mg/dL (75-99)
[2020-11-10] MEDS: INSULIN ASPART (NovoLOG) 100 UNIT/ML VIAL SQ SCH ×2 (07:56→12:32)
[2020-11-10 07:58] VITALS: BP 150/67; PULSE 81; RESP 18; TEMP 98.3
[2020-11-10] MEDS: MELOXICAM 7.5 MG TAB PO SCH (08:07)
[2020-11-10] MEDS: ATORVASTATIN 20 MG TAB PO SCH (08:07)
[2020-11-10] MEDS: ENOXAPARIN 30 MG/0.3 ML SYRINGE SQ SCH (08:11)
[2020-11-10] MEDS: PIOGLITAZONE 45 MG TAB PO SCH (08:11)
[2020-11-10] MEDS: metFORMIN 500 MG TAB PO SCH (08:11)
[2020-11-10] MEDS: MULTIVITAMINS, THERA 1 EACH TAB PO SCH (08:11)
[2020-11-10] MEDS: GLIMEPIRIDE 4 MG TAB PO SCH (08:11)
[2020-11-10] MEDS ORDERED: HYDROcodone/APAP 7.5-325MG 1 EACH TAB PO ONE (08:12)
--- NOTE | 2020-11-10 08:54 | P.PN ---
Subjective Progress Note Date: 11/10/20 Principal diagnosis: Status post right total knee arthroplasty Patient was examined today bedside, she is resting in a hospital chair. She admits to slightly worsening pain today.. She also is able to extend and flex the feet and toes with no difficulty. She denies any headaches, lightheadedness, chest pain or shortness of breath. Objective - Vital Signs Vital signs: Vital Signs Temp 98.3 F 11/10/20 07:20 Pulse 81 11/10/20 07:20 Resp 18 11/10/20 07:20 BP 150/67 11/10/20 07:20 Pulse Ox 96 11/10/20 07:20 Intake & Output 11/09/20 11/10/20 11/10/20 18:59 06:59 18:59 Other: # Voids 4 1 - Exam Right lower extremity: Incision is clean, dry, and intact. The foam dressings is in good condition. There is minimal soft tissue swelling and ecchymosis surrounding the medial and lateral aspects of the incision. Calf is soft, no tenderness with palpation. Plantar flexion, FHL, dorsiflexion and EHL are intact. Sensory exam to light touch throughout the extremity is intact, dorsal pedis pulses 2+. - Labs CBC & Chem 7: 11/09/20 05:44 Labs: Abnormal Lab Results - Last 24 Hours (Table) 11/09/20 11/09/20 11/09/20 Range/Units 05:44 11:29 16:30 WBC 11.32 H (4.50-10.00) X 10*3/uL MCHC 31.5 L (32.0-37.0) g/dL RDW 14.6 H (11.5-14.5) % Neutrophils # 8.83 H (1.80-7.70) X 10*3/uL Monocytes # 1.16 H (0.20-1.00) X 10*3/uL Eosinophils # 0.01 L (0.04-0.35) X 10*3/uL POC Glucose (mg/dL) 244 H 319 H (75-99) mg/dL 11/09/20 11/10/20 Range/Units 20:21 06:43 WBC (4.50-10.00) X 10*3/uL MCHC (32.0-37.0) g/dL RDW (11.5-14.5) % Neutrophils # (1.80-7.70) X 10*3/uL Monocytes # (0.20-1.00) X 10*3/uL Eosinophils # (0.04-0.35) X 10*3/uL POC Glucose (mg/dL) 231 H 126 H (75-99) mg/dL Assessment and Plan Assessment: Status post right total knee arthroplasty Plan: Pain control, will adjust oral medication DVT prophylaxis, aspirin 81 mg twice a day Wound care instructions were discussed Icing and elevating techniques discussed Encourage incentive spirometer Medical recommendations Footdrop on the right side has completely resolved Discharge planning: Hopeful discharged today Time with Patient: Less than 30
[2020-11-10 11:47] LABS: Glucose,Whole Blood 196 mg/dL (75-99)
--- NOTE | 2020-11-10 11:59 | P.DS ---
Providers Date of admission: 11/09/20 10:53 Expected date of discharge: 11/10/20 Attending physician: Soto Ariza Consults: 11/08/20 11:34 Consult Physician Routine Consulting Provider: Moody Nunn Consult Reason/Comments: Medical management Do you want consulting provider notified?: Yes Primary care physician: Robbie Bernabe [facility] Course: Date of admission: 11/08/2020 Date of discharge: 11/10/2020 Admission diagnosis: Status post right total knee arthroplasty Discharge diagnosis: Same Attending physician: Dr. ariza Surgical procedures: Right total knee arthroplasty Brief history: Patient is a 75-year-old female with a history of progressive primary right knee osteoarthritis. At this point patient has failed conservative treatment measures and has opted to proceed with a elective right total knee arthroplasty. Hospital course: Details of patient's surgery can be found in operative report. Patient tolerated the procedure well and was subsequently transported to orthopedic floor. Patient's orthopeidc and medical care was provided daily. Patient had daily laboratory tests performed for evaluation of overall blood counts. Patient had daily physical therapy to include strengthening range of motion as well as education with walker ambulation. Patient was treated with Lovenox for their postoperative DVT prophylaxis during their inpatient stay. Patient was noted to have a relatively uneventful postoperative course. Patient reported satisfactory pain control with oral pain medications by postoperative day 0. Patient showed satisfactory progress with physical therapy. Patient moved steadily through the program and had no difficulty meeting the goals by postoperative day 2. Given patient's otherwise satisfactory course and having met physical therapy goals, plan is to discharge patient home on postoperative day 2. Discharge condition/disposition: Patient will be discharged home in stable condition. Discharge medications: Instructions are given on resumption of patient's normal daily medications per primary care recommendation, in addition patient will be prescribed [place] 7.5 mg/325 mg, aspirin 81 mg, senna, Mobic 7.5 mg. Discharge instructions: 1. Wound care and infection precautions, keep incision dry and covered while showering, no lotions, creams, moisturizers. No soaking, tubs, pools, hottubs. Do not scrub over the incision. 2. Weight-bear as tolerated with walker / cane until follow-up. 3. Ice and elevate when necessary. Do not exceed 20 minutes per hour with ice pack. 4. Utilize compression sleeve until seen at first follow up appointment. 5. Visiting nursing care. 6. Home physical therapy including home CPM. 7. Pain meds and anticoagulants per prescription. 8. Pain medication has potential to cause constipation. Increase oral fluid and fiber intake. Contact primary care provider if you have not had a bowel movement within 48 hours after discharge 9. No anti-inflammatory medication until discussed at first post operative visit, this including Motrin, Aleve, Mobic, Diclofenac. 10. Follow up in office at 2 weeks postop with Duane Cardenas PA-C/Stephon Lainez 11. Follow up with your primary care doctor 7-10 days after discharge. 12. Contact [facility] with any questions, . Wound care: 1. Okay to remove foam dressing on 11/15/2020 2. Okay to shower directly over the incision after removal of the bandage Procedures: right total knee arthroplasty Patient Condition at Discharge: Good Plan - Discharge Summary Discharge Rx Participant: Yes New Discharge Prescriptions: New Aspirin [Adult Low Dose Aspirin EC] 81 mg PO BID #60 tablet. HYDROcodone/APAP 7.5-325MG [[place] 7.5] 1 - 2 each PO Q6HR PRN #42 tab PRN Reason: Pain Meloxicam [Mobic] 7.5 mg PO DAILY tab Sennosides-Docusate Sodium [Senokot-S] 2 each PO HS #60 tab Continue metFORMIN HCL 1,000 mg PO BID Simvastatin 40 mg PO DAILY Levothyroxine Sodium [Synthroid] 112 mcg PO QAM Glimepiride [Amaryl] 4 mg PO BID Pioglitazone [Actos] 45 mg PO DAILY Insulin Glargine [Lantus] 15 unit SQ HS Multivitamins, Thera [Multivitamin (formulary)] 1 tab PO DAILY Discharge Medication List Glimepiride [Amaryl] 4 mg PO BID 05/05/14 [History] Levothyroxine Sodium [Synthroid] 112 mcg PO QAM 05/05/14 [History] Simvastatin 40 mg PO DAILY 05/05/14 [History] metFORMIN HCL 1,000 mg PO BID 05/05/14 [History] Insulin Glargine [Lantus] 15 unit SQ HS 01/10/19 [History] Pioglitazone [Actos] 45 mg PO DAILY 01/10/19 [History] Multivitamins, Thera [Multivitamin (formulary)] 1 tab PO DAILY 12/24/19 [History ] Aspirin [Adult Low Dose Aspirin EC] 81 mg PO BID #60 tablet. 11/10/20 [Rx] HYDROcodone/APAP 7.5-325MG [[place] 7.5] 1 - 2 each PO Q6HR PRN #42 tab 11/10/20 [Rx] Meloxicam [Mobic] 7.5 mg PO DAILY tab 11/10/20 [Rx] Sennosides-Docusate Sodium [Senokot-S] 2 each PO HS #60 tab 11/10/20 [Rx] Follow up Appointment(s)/Referral(s): [facility] [NON-STAFF] - ([facility] care will call you to arrange your first home visit. ) [facility],Equipment [NON-STAFF] - (*Please call [facility] once home to arrange delivery of continuous passive motion (CPM) machine. ) Robbie Sheffield, [Primary Care Provider] - 1 Week John Cardenas PAC [PHYSICIAN [employer]PER[employer]OR] - 2 Weeks Patient Instructions/Handouts: *[facility] - ([facility]) Arthroscopic Knee Post-Op Instructions, *Surgery [facility] - On-Q Pain Pump Discharge Instructions Activity/Diet/Wound Care/Special Instructions: Orthopedic Discharge Instructions: 1. Wound care and infection precautions, keep incision dry and covered while showering, no lotions, creams, moisturizers. No soaking, pools, hot tubs. Do not scrub over incision. 2. Weight-bear as tolerated with walker / cane until follow-up. 3. Ice and elevate when necessary. Do not exceed 20 minutes per hour with ice pack. 4. Utilize compression sleeve until seen at first follow up appointment. 5. Pain meds and anticoagulants per prescription. 6. Pain medication has potential to cause constipation. Increase oral fluid and fiber intake. Contact primary care provider if you have not had a bowel movement within 48 hours after discharge. 7. No anti-inflammatory medication until discussed at first post operative visit, this including Motrin, Aleve, Mobic, Diclofenac. 8. Follow up in office at 2 weeks postop with Duane Cardenas PA-C/Stephon Ray PA-C 9. Follow up with your primary care doctor 7-10 days after discharge. 10. Contact [facility] with any questions, . Wound care: 1. Remove foam dressing on 11/15/2020 2. Okay to shower over incision after removal of the bandage Discharge Disposition: HOME WITH HOME HEALTH SERVICES
--- NOTE | 2020-11-10 16:22 | P.PN ---
Progress Note - Text Progress Note Date: 11/10/20 - Chief Complaint Knee surgery Consultation: This is a pleasant 75-year-old patient of Dr. Gregory. Chronic stable medical conditions include diabetes, hyperlipidemia, osteoarthritis especially in the hands, hypothyroid. Patient has undergone right total knee arthroplasty. Today: Did ambulate. Pain better control. Increase with activity. Oral intake good. No chest pain no shortness of breath.. Review of systems: Was done for constitutional, cardiovascular, GI, pulmonary. relevant finding as above Current medications reviewed in today's electronic records Past medical history to include: Diabetes, hyperlipidemia, osteomyelitis, hypothyroid, Social history: Patient stopped smoking over 20 years ago. Alcohol rarely. . Family history: Reviewed, noncontributory to presentation Physical examination: VITAL SIGNS: 98.3, 91, 18, 150/67, 96% room air GENERAL: Up in a chair, comfortable EYES: Pupils equal. Conjunctiva normal. NECK: JVD not raised; masses not palpable. HEART: First and second heart sounds are normal; no edema. LUNGS: Respiratory rate normal; clear to auscultation. ABDOMEN: Soft, nontender, liver spleen not palpable, no masses palpable. PSYCH: Alert and oriented x3; mood and affect normal MUSCULAR skeletal: Osteoarthritis of the hands. Dressing over the right knee. Investigations: WBC 11.2 hemoglobin 12. Accu-Cheks 98, 244 Accu-Cheks 102, 73, 170 Assessment and plan: -Right total knee arthroplasty Aspirin for DVT prophylaxis -Primary osteoarthritis multiple joints Pain management when necessary -Diabetes mellitus type 2, uncontrolled with hyperglycemia [oral hypoglycemics were held because of nausea yesterday evening.] Continue Lantus Follow Accu-Cheks. Resume metformin and Amaryl -Postop nausea, possibly side effect of anesthesia and pain medication-corrected Zofran when necessary -Hypothyroid Resume Synthroid -Insomnia, intermittent use melatonin -Obesity BMI 30.9 Weight loss measures and follow with PCP Discussed with the patient. Follow-up with PCP upon discharge. Thank you Dr. Florence
== END 2020-11-10 15:05 | disposition home health service (06) ==
LOC: OR 07:52 → 4SSUR 13:50 → OR 11-09 10:53
PROVIDERS: ADMIT Orthopaedic Surgery; ATTEND Orthopaedic Surgery
DX: M17.11 Unilateral primary osteoarthritis, right knee (principal); E11.65 Type 2 diabetes mellitus with hyperglycemia; K91.89 Other postprocedural complications and disorders of digestive system; R11.0 Nausea; M21.371 Foot drop, right foot; E03.9 Hypothyroidism, unspecified; E78.5 Hyperlipidemia, unspecified; M19.042 Primary osteoarthritis, left hand; M19.041 Primary osteoarthritis, right hand; G47.00 Insomnia, unspecified; E66.9 Obesity, unspecified; Z68.30 Body mass index [BMI] 30.0-30.9, adult; Z79.4 Long term (current) use of insulin; Z79.82 Long term (current) use of aspirin; Z79.890 Hormone replacement therapy; Z79.899 Other long term (current) drug therapy; Z88.1 Allergy status to other antibiotic agents; Z87.891 Personal history of nicotine dependence; Z87.39 Personal history of other diseases of the musculoskeletal system and connective tissue; Z98.51 Tubal ligation status; Z96.698 Presence of other orthopedic joint implants
CPT/HCPCS: 97116; 97530; 97161; 64999; 64448; 76942; 85025; 88300; 73560; 27447; G0378 ×2; C1776; C1713; J2250; J1100; J0690 ×3; J2405; J1650 ×3; J2795 ×2; J1170 ×2